=== PATIENT | female | born 1930 | race Caucasian/White ===

== ENCOUNTER 2016-07-13 23:59 | Emergency (ER) | payer MEDICARE, OTHER ==
[~2016-07-13 23:59] MED LIST: AMPI500 PO; ASAB PO; AVANDIA4 PO; BEN25 PO; DCN100 PO; FERROUS SULF325 M1 PO; HCTZ12.5 PO; HCTZ25B PO; JANTOVEN2 MG PO; JANTOVEN2.5 MG PO; JANUVIA100 MG PO; KDUR20 PO; KLOR-CON M2020 MEQ PO; L40 PO; LIPITOR10 PO; LOP25 PO; LOP50 PO; MULTIVITAMI1 PO; NEXIUM40 PO; NIASPAN500 PO; NITROQUICK0.4 MG SL; NORV10 PO; NORV25 PO; T PO; Z100 PO; ZOL50 PO
== END 2016-07-14 04:01 | disposition home or self-care (01) ==
LOC: ER 23:59
DX: M54.5 Low back pain (principal); E11.9 Type 2 diabetes mellitus without complications; G30.9 Alzheimer's disease, unspecified; F02.80 Dementia in other diseases classified elsewhere, unspecified severity, without behavioral disturbance, psychotic disturbance, mood disturbance, and anxiety; Z88.5 Allergy status to narcotic agent; Z88.8 Allergy status to other drugs, medicaments and biological substances; Z79.82 Long term (current) use of aspirin; Z79.01 Long term (current) use of anticoagulants; Z79.899 Other long term (current) drug therapy; W07.XXXA Fall from chair, initial encounter
CPT/HCPCS: 72100; 72170; 96372; 99284; A9270-GY

== ENCOUNTER 2016-07-18 05:16 | Emergency (ER) | payer MEDICARE, OTHER ==
[2016-07-18 03:20] LABS: BASOPHILS 0.3 %; BASOPHILS ABSOLUTE 0.03 10/3/uL (0.0-0.16); EOSINOPHILS 2.7 %; EOSINOPHILS ABSOLUTE 0.25 10/3/uL (0.0-0.53); HEMATOCRIT 29.1 % (36.0-48.0); HEMOGLOBIN 9.8 g/dL (12.0-16.0); IMMATURE GRANULOCYTES 0.2 %; IMMATURE GRANULOCYTES ABSOLUTE 0.02 10/3/uL (0.0-0.11); LYMPHOCYTES ABSOLUTE 0.83 10/3/uL (0.67-4.30); MEAN CORPUS HGB CONC 33.7 g/dL (32.0-36.0); MEAN CORPUSCULAR HEMOGLOB 33.3 pg (26.0-34.0); MEAN PLATELET VOLUME 10.3 fL (9.2-13.0); MONOCYTES 9.8 %; MONOCYTES ABSOLUTE 0.91 10/3/uL (0.21-1.20); NEUTROPHILS ABSOLUTE 7.23 10/3/uL (2.02-8.40); RBC DISTRIBUTION WIDTH 14.4 % (12.0-16.0); RED CELL COUNT 2.94 10/6/uL (4.0-5.6); WHITE BLOOD CELLS 9.3 10/3/uL (4.5-10.5)
[2016-07-18 03:21] LABS: MANUAL DIFF NO %; PLATELET COUNT 153 10/3/uL (150-400)
[2016-07-18 03:34] LABS: BUN (BLOOD UREA NITROGEN) 30 MG/DL (6-23); CALCIUM, SERUM 9.7 MG/DL (8.5-10.4); CHLORIDE, SERUM 107 MMOL/L (96-112); CO2 (CARBON DIOXIDE) 27 MMOL/L (24-34); CREATININE 1.96 MG/DL (0.55-1.02); GFR AFRICAN AMERICAN 26 ML/MIN (>=60); GFR NON AFRICAN AMERICAN 22 ML/MIN (>=60); GLUCOSE, SERUM 127 MG/DL (60-99); POTASSIUM, SERUM 3.7 MMOL/L (3.5-5.3); SODIUM, SERUM 142 MMOL/L (135-148)
[2016-07-18 03:35] LABS: INTERNATIONAL NORMAL RATI 3.4 UNITS (-); PARTIAL THROMBO TIME 42.2 SEC (22.5-37.2); PROTIME (NOT ORD) 34.1 SEC (12.0-14.5)
== END 2016-07-18 06:02 | disposition home or self-care (01) ==
LOC: ER 05:16
PROVIDERS: Nurse Practitioner
DX: R04.0 Epistaxis (principal); I12.9 Hypertensive chronic kidney disease with stage 1 through stage 4 chronic kidney disease, or unspecified chronic kidney disease; N18.9 Chronic kidney disease, unspecified; I48.91 Unspecified atrial fibrillation; F03.90 Unspecified dementia, unspecified severity, without behavioral disturbance, psychotic disturbance, mood disturbance, and anxiety; E11.9 Type 2 diabetes mellitus without complications; Z85.6 Personal history of leukemia; Z79.82 Long term (current) use of aspirin; Z79.899 Other long term (current) drug therapy; Z79.01 Long term (current) use of anticoagulants; Z88.5 Allergy status to narcotic agent; Z88.8 Allergy status to other drugs, medicaments and biological substances
CPT/HCPCS: 80048; 85025; 85610; 85730; 96374; 96375; 99283; A9270-GY; J0360; J2405

== ENCOUNTER 2016-07-18 09:33 | Emergency (ER) | payer MEDICARE, OTHER | END 2016-07-18 10:30 | disposition home or self-care (01) | LOC: ER 09:33 | PROC: 2Y41X5Z Packing of Nasal Region using Packing Material (ICD-10-PCS; principal; 2016-07-18) | DX: R04.0 Epistaxis (principal); I12.9 Hypertensive chronic kidney disease with stage 1 through stage 4 chronic kidney disease, or unspecified chronic kidney disease; N18.9 Chronic kidney disease, unspecified; D68.9 Coagulation defect, unspecified; F03.90 Unspecified dementia, unspecified severity, without behavioral disturbance, psychotic disturbance, mood disturbance, and anxiety; E11.9 Type 2 diabetes mellitus without complications; Z85.6 Personal history of leukemia; I48.91 Unspecified atrial fibrillation; Z79.01 Long term (current) use of anticoagulants; Z79.899 Other long term (current) drug therapy; Z88.5 Allergy status to narcotic agent; Z88.8 Allergy status to other drugs, medicaments and biological substances | CPT/HCPCS: 80048; 85025; 85610; 85730; 96374; 96375; 99283; A9270-GY; J0360; J2405 ==